=== PATIENT | female | born 1970 | race Caucasian/White ===

== ENCOUNTER → 2017-06-15 | Outpatient (CLI) | payer BC, OTHER ==
--- NOTE | 2017-06-15 08:48 | Diagnostic Imaging Report ---
EXAMINATION: Bilateral diagnostic mammogram with tomosynthesis and a Computer Aided Detection (CAD) system. INDICATION: Pain and swelling in the left axillary region. COMPARISON: 07/15/2016. FINDINGS: The breasts are composed of heterogeneously dense parenchyma which may decrease mammographic sensitivity. There is no definite underlying mass seen and areas of asymmetry in the left breast appear stable from the prior mammograms including a focal asymmetry in the upper outer aspect along the far posterior aspect of the left breast. With tomosynthesis evaluation, this region appears nonspecific and could represent focal parenchyma. The area of pain in the axillary tail region is marked with no underlying abnormality seen. The right breast demonstrates no definite change. IMPRESSION: 1. The area of pain demonstrates no mammographic abnormality. 2. There is a focal asymmetry in the upper outer aspect of the left breast in the far posterior aspect which appears to be unchanged from multiple prior exams favoring a benign etiology. The tomographic appearance is indeterminate. An ultrasound evaluation is pending. ACR BI-RADS Category 0: Incomplete. (Needs additional imaging evaluation). Result letter will be mailed to the patient. Note: At least 10% of breast cancer is not imaged by mammography. Dictated by: Dictated on workstation # [id number]
--- NOTE | 2017-06-15 09:55 | Diagnostic Imaging Report ---
EXAMINATION: Left breast ultrasound. INDICATION: Pain in the left axillary region. Also the breast parenchyma is dense and there is a focus within the upper outer aspect, far posterior depth seen on mammography. FINDINGS: The four-quadrant internal mammary region appear unremarkable with no focal lesion. IMPRESSION: Negative study. The focal asymmetry along the far posterior aspect in the upper outer left breast based on mammography remains indeterminate. Similar focal asymmetry is seen on prior mammograms which would favor benign etiology. MRI of the breast for further evaluation however is recommended. BI-RADS 0. ACR BI-RADS Category 0: Incomplete. (Needs additional imaging evaluation). Dictated by: Dictated on workstation # [id number]
== END ==
LOC: RAD 07:57
PROVIDERS: ATTEND Family Medicine
DX: N64.89 Other specified disorders of breast (principal)
CPT/HCPCS: 76641; 77066

== ENCOUNTER → 2017-07-03 | Outpatient (CLI) | payer BC ==
[~2017-07-03] MED LIST: GADOBUTROL 7.5 MMOL/7.5 ML (GADAVIST) VIAL IV ONE
== END ==
LOC: RAD 11:03
PROVIDERS: ATTEND Family Medicine
DX: N64.4 Mastodynia (principal); R59.0 Localized enlarged lymph nodes
CPT/HCPCS: 77059

== ENCOUNTER → 2018-02-12 | Outpatient (CLI) | payer BC ==
--- NOTE | 2018-02-12 13:05 | Diagnostic Imaging Report ---
INDICATION: Chronic left hip pain. TIME OF EXAM: 12:51 PM FINDINGS: Two views of the left hip demonstrate normal femoral acetabular alignment. The joint space is well maintained. The femoral head and neck are intact. No fractures are seen. IMPRESSION: No acute bony abnormality is detected. Dictated by: Dictated on workstation # [id number]
== END ==
LOC: RAD 12:16
PROVIDERS: ATTEND Family Medicine
DX: M25.552 Pain in left hip (principal); G89.29 Other chronic pain
CPT/HCPCS: 73502

== ENCOUNTER → 2018-06-25 | Outpatient (CLI) | payer BC ==
--- NOTE | 2018-06-25 15:38 | Diagnostic Imaging Report ---
INDICATION: Routine screening. COMPARISON: Comparison is made with prior exam from 06/15/2017 and 06/10/2016. TECHNIQUE: 2D and 3D bilateral screening mammography was performed with computer-aided detection (CAD) system. FINDINGS: Both breasts again demonstrate marked parenchymal heterogeneity and increased density, limiting the sensitivity of mammography. The parenchymal pattern appears stable. Circumscribed densities far posterior left breast appear stable and most consistent with intraparenchymal lymph nodes. No spiculated mass or malignant appearing microcalcifications are seen. The axillae are unremarkable. IMPRESSION: No mammographic features suspicious for malignancy are identified. ACR BI-RADS Category 2: Benign findings. Result letter will be mailed to the patient. Note: At least 10% of breast cancer is not imaged by mammography. Dictated by: Dictated on workstation # [id number]
== END ==
LOC: RAD 13:23
PROVIDERS: ATTEND Family Medicine
DX: Z12.31 Encounter for screening mammogram for malignant neoplasm of breast (principal)
CPT/HCPCS: 77067

== ENCOUNTER → 2019-06-01 | Outpatient (CLI) | payer BC ==
[~2019-06-01] MED LIST changes: +CATHETER FLUSH 10 ML SYR IV PRN; -GADOBUTROL 7.5 MMOL/7.5 ML (GADAVIST) VIAL IV ONE
--- NOTE | 2019-06-01 13:49 | Diagnostic Imaging Report ---
INDICATION: Right upper quadrant pain. TECHNIQUE: The patient was administered 5.5 mCi of technetium 99m Choletec intravenously and imaging over the abdomen was performed. At 60 minutes, the patient ingested one can of Ensure and a gallbladder ejection fraction was calculated. FINDINGS: There is homogeneous uptake of activity by the liver. Excretion of activity into the common duct and gallbladder is noted. There is normal passage of activity into the small bowel. The gallbladder ejection fraction is at the lower limits of normal at 34%. Normal values are 33% or greater. IMPRESSION: 1. Patent cystic duct and common bile duct. 2. Lower limits of normal gallbladder ejection fraction of 34%. Dictated by: Dictated on workstation # [id number]
== END ==
LOC: CARD 09:32
PROVIDERS: ATTEND Nurse Practitioner Family
DX: R10.11 Right upper quadrant pain (principal)
CPT/HCPCS: 78227

== ENCOUNTER 2019-06-23 08:37 | Day surgery (SDC) | payer BC ==
[2019-06-23] VITALS (13 sets, daily range): BP systolic 95–138; BP diastolic 66–89
[~2019-06-23] VITALS: Ht 157.5 cm; Wt 69.9 kg
[~2019-06-23 08:37] MED LIST changes: -CATHETER FLUSH 10 ML SYR IV PRN; +PANT40TA2 PO
--- NOTE | 2019-06-23 09:01 | Progress Note-Pre Operative ---
Pre-Operative Progress Note H&P Reviewed The H&P was reviewed, patient examined and no changes noted. Date Seen by Provider: Jun 23, 2019 Time Seen by Provider: 08:55 Date H&P Reviewed: Jun 23, 2019 Time H&P Reviewed: 08:50 Pre-Operative Diagnosis: Biliary Dyskinesia, Reflux, PUD, lower abdominal pain LASHANDA OCASIO APRN Jun 23, 2019 09:01
[2019-06-23] MEDS ORDERED: HYDR-3816 PO (09:03)
--- NOTE | 2019-06-23 09:05 | Discharge Inst-Surgical ---
D/C Lap Instructions-KIDO Reconcile Patient Problems Problems Reviewed?: Yes New, Converted, or Re-Newed RX: RX on Chart Follow Up Appt in 2 weeks Activity as tolerated No driving for 24 hours No driving while on pain medications Incentive Spirometry use every 2 hours while awake Regular Diet High Fiber Diet 25g or more per day Avoid Alcohol, Caffeine, Spicy Horatio and Acid foods. Drink 64 fluid oz or more of fluids per day. Symptoms to Report: Fever over 101 degree F, Nausea/Vomiting Infection Signs and Symptoms to report: Increased redness, Foul odor of wound, Increased drainage Bathing instructions: May shower Operative Area Clean/Dry; Keep incision clean/dry If any problems/questions: Contact your physician or go to Emergency Room LASHANDA OCASIO APRN Jun 23, 2019 09:05
[2019-06-23] MEDS ORDERED: FAMOTIDINE 20MG/2ML IV (PEPCID) ONE (09:07)
[2019-06-23 09:13] LABS: BASOPHILS % (AUTO) 0 % (0-10); EOSINOPHILS # (AUTO) 0.1 10^3/uL (0.0-0.3); EOSINOPHILS % (AUTO) 2 % (0-10); HEMATOCRIT 45 % (35-52); HEMOGLOBIN 15.3 G/DL (11.5-16.0); LYMPHOCYTES # (AUTO) 2.4 X 10^3 (1.0-4.0); LYMPHOCYTES % (AUTO) 31 % (12-44); MEAN CORPUSCULAR HEMOGLOBIN 30 PG (25-34); MEAN CORPUSCULAR HGB CONC 34 G/DL (32-36); MEAN CORPUSCULAR VOLUME 87 FL (80-99); MEAN PLATELET VOLUME 9.7 FL (7.4-10.4); MONOCYTES # (AUTO) 0.7 X 10^3 (0.0-1.0); MONOCYTES % (AUTO) 9 % (0-12); NEUTROPHILS # (AUTO) 4.4 X 10^3 (1.8-7.8); NEUTROPHILS % (AUTO) 58 % (42-75); PLATELET COUNT 262 10^3/uL (130-400); RED CELL DISTRIBUTION WIDTH 13.1 % (10.0-14.5); WHITE BLOOD COUNT 7.6 10^3/uL (4.3-11.0)
[2019-06-23] MEDS ORDERED: ONDANSETRON 4 MG/2 ML (SDV) Z0FRAN IVP PRN ×2 (09:15→12:00)
[2019-06-23] MEDS ORDERED: HYDROcodone/APAP 5 MG/325 MG (LORTAB) TAB PO ONE (09:15)
[2019-06-23] MEDS ORDERED: ACETAMINOPHEN 325 MG TABLET PO PRN (09:15)
[2019-06-23] MEDS ORDERED: morphine INJ 10 MG/ML 1ML (SYR OR VIAL) IVP PRN (09:15)
[2019-06-23] MEDS ORDERED: TRAM50TA2 PO (09:19)
[2019-06-23] MEDS ORDERED: ceFAZolin 2 GM/50 ML NS 50 ML ONE (09:20)
[2019-06-23] MEDS ORDERED: LACTATED RINGERS 1,000 ML IV PRN (09:33)
[2019-06-23] MEDS ORDERED: FAMOTIDINE 20MG/2ML IV (PEPCID) IVP ONE (09:45)
[2019-06-23] MEDS ORDERED: ONDANSETRON 4 MG/2 ML (SDV) Z0FRAN IVP ONE (09:45)
[2019-06-23] MEDS ORDERED: ceFAZolin 2 GM/50 ML NS 50 ML IV ONE (09:45)
[2019-06-23] MEDS ORDERED: proPOfol 200 MG/20 ML (DIPRIVAN) VIAL IV ONE (09:50)
[2019-06-23] MEDS ORDERED: DEXAMETHASONE 10 MG/ML (DECADRON) 1 ML VIAL ONE (09:50)
[2019-06-23] MEDS ORDERED: ONDANSETRON 4 MG/2 ML (SDV) Z0FRAN ONE (09:50)
[2019-06-23] MEDS ORDERED: LIDOCAINE PF 2% 5 ML (XYLOCAINE) VIAL ONE (09:50)
[2019-06-23] MEDS ORDERED: fentaNYL INJECTION 100 MCG/2 ML AMP ONE (09:51)
[2019-06-23] MEDS ORDERED: MIDAZOLAM 2 MG/2 ML (VERSED) VIAL ONE (09:51)
[2019-06-23] MEDS ORDERED: BUP/EPI 0.5% 1:200,000 (MARCAINE) 10ML VIAL IJ ONE (09:55)
[2019-06-23] MEDS ORDERED: ROCURONIUM 10 MG/ML 5 ML SYRINGE IV ONE (10:00)
[2019-06-23] MEDS ORDERED: SEVOFLURANE (ULTANE) 15 ML INHAL SOLN ONE ×2 (10:00→11:28)
[2019-06-23] MEDS ORDERED: GLYCOPYRROLATE 0.2 MG/ML (ROBINUL) 2 ML VIAL ONE (11:22)
[2019-06-23] MEDS ORDERED: KETOROLAC 30 MG/ML VIAL ONE (11:22)
[2019-06-23] MEDS ORDERED: NEOSTIGMINE 3 MG/3 ML VIAL ONE (11:22)
--- NOTE | 2019-06-23 11:33 | Progress Note-Post Operative ---
Post-Operative Progess Note Surgeon (s)/Head Of Science (s) Surgeon Dr. Dakota Chan M.D. Head Of Science: Javi Ocasio APRN Pre-Operative Diagnosis Biliary Dyskinesia, Reflux, PUD, lower abdominal pain Post-Operative Diagnosis Biliary Dyskinesia, reflux esophagitis stage II, small hiatal hernia (1.5 cm), mild gastritis, normal colon and rectum. Procedure & Operative Findings Date of Procedure 06/23/19 Procedure Performed/Findings Laparoscopic Cholecystectomy, EGD with biopsy, colonoscopy Anesthesia Type GET Estimated Blood Loss Estimated blood loss (mL): Minimal Specimens/Packing Specimens Removed 1) Gallbladder 2) Antrum 3) GE junction JAVI OCASIO APRN Jun 23, 2019 11:33
[2019-06-23] MEDS ORDERED: morphine INJ 10 MG/ML 1ML (SYR OR VIAL) IVP ONE (12:00)
[2019-06-23] MEDS ORDERED: PROMETHAZINE INJ 25 MG/ML (PHENERGAN) AMP IVP ONE (12:00)
[2019-06-23] MEDS ORDERED: MEPERIDINE (DEMEROL) INJ 50 MG/ML IVP ONE (12:00)
--- NOTE | 2019-06-23 12:54 | Anesthesia-General Post-Op ---
General Patient Condition Mental Status/LOC: Same as Preop Cardiovascular: Satisfactory Nausea/Vomiting: Absent Respiratory: Satisfactory Pain: Controlled Complications: Absent Post Op Complications Complications None Follow Up Care/Instructions Patient Instructions None needed. Anesthesia/Patient Condition Patient Condition Patient is doing well, no complaints, stable vital signs, no apparent adverse anesthesia problems. No complications reported per nursing. MUSHTAQ STANTON CRNA Jun 23, 2019 12:54
--- NOTE | 2019-06-23 17:10 | OPERATIVE REPORT ---
DATE OF SERVICE: 06/23/2019 ATTENDING PRIMARY CARE PHYSICIAN: Dr. Quintanilla. PREOPERATIVE DIAGNOSES: Symptomatic biliary dyskinesia, gastroesophageal reflux disease, history of colon polyps. POSTOPERATIVE DIAGNOSES: Biliary dyskinesia, reflux esophagitis stage II, small hiatal hernia 1.5 to 2 cm in size, mild gastritis. Normal colon and rectum. PROCEDURE: Laparoscopic cholecystectomy, EGD with biopsy, colonoscopy. SURGEON: Kiran Chan MD WASTEWATER PROCESS ENGINEER: Javi Isidro APRN ANESTHESIA: General endotracheal. ESTIMATED BLOOD LOSS: Minimal. FINDINGS: Biliary dyskinesia, reflux esophagitis stage II, small hiatal hernia 1.5 to 2 cm in size, mild gastritis. Normal colon and rectum. DISPOSITION: The patient tolerated the procedure well. INDICATION: The patient is a 48-year-old female, who has had pain in the right upper abdominal quadrant on an intermittent basis for years; however, this has become much more significant more recently. She states that she has a severe bloating sensation of the upper abdomen and then also pain in the right upper abdominal quadrant with radiation towards the back. She feels nausea; however, no vomiting. She has had a history of gastroesophageal reflux disease with epigastric burning sensation; however, states that other issue is different from her reflux. She reports that the abdominal pain and distention cause worsening reflux. She also has had a history of colon polyps and is in need of a screening colonoscopy. DESCRIPTION OF PROCEDURE: The patient was brought to the operating room, laid supine on the table. After adequate IV pain and sedative medications and general endotracheal intubation, the abdomen was prepped and draped in standard surgical fashion. A 0.5% Marcaine with epinephrine was used to anesthetize the overlying skin in the left upper abdominal quadrant and a transverse skin incision was made using 15 blade. An 0 silk suture was applied to the medial aspect of the incision for retraction and a Veress needle was inserted with a low opening pressure of 0 mmHg and the abdomen was insufflated to 15 mmHg pressure. The Veress needle was removed and a 5 mm XL trocar was placed followed by a 5 mm 45-degree angle laparoscope visualizing the peritoneal cavity. A 4-quadrant abdominal exploration was performed. There were omental adhesions along the hepatic flexure. There was a slightly distended gallbladder. There was no gallbladder wall thickening. The omental adhesions were then taken down using cautery and EndoShear. The gallbladder was then retracted anteriorly and superiorly and the patient was then placed in reverse Trendelenburg position. The hepatoduodenal ligament was then opened using blunt dissection as well as electrocautery using the hook instrument. The entire critical view of safety was identified including the cystic duct and artery as the only two structures going into the gallbladder as well as the triangle of Calot as well as the cystic plate behind the proximal gallbladder. A timeout was then taken and the cystic duct and artery were then clipped proximally and distally and cut with EndoShears. The gallbladder was then dissected off the liver bed using cautery on hook instrument with visualization of good hemostasis as well as no leaking ducts of Luschka. The gallbladder was removed through the 10 mm port site using an EndoCatch bag. The 10 mm port site fascia and peritoneum were then closed under direct visualization using a Norman-Sánchez device and 0 Vicryl suture. The abdomen was desufflated and the remaining ports were removed. All skin incisions were closed using 4-0 Monocryl running subcuticular sutures. Wounds were then cleaned and covered with Dermabond. Under the same anesthesia, we then proceeded with the EGD portion of the procedure and the mouthpiece was applied. The endoscope was then placed in the mouth, visualizing the pharynx and hypopharyngeal region. Vocal cords, epiglottis and vallecula were identified and appeared to be normal. The endoscope was then gently intubated into the esophageal opening and esophagus was insufflated. The endoscope was then advanced through the first, second and third portions of the esophagus at the level of the GE junction, reflux esophagitis stage II was identified. There were no ulcers or strictures identified in this region. A biopsy was taken with forceps and electrocautery with visualization of good hemostasis. The endoscope was then advanced into the stomach and endoscope retroflexed, visualizing a small hiatal hernia, approximately 1.5 to 2 cm in size. There was a mild gastritis. No formal ulcerations, polyps or any neoplasms. A biopsy was taken of the stomach antrum to rule out H. pylori with visualization of good hemostasis. The endoscope was then advanced to the pylorus and the first and second portion of the duodenum, which appeared normal with no distal obstructions. The endoscope was then slowly withdrawn while taking a second look and suctioning of residual air with no additional findings. Under the same anesthesia, we then proceeded with colonoscopy portion of the procedure and the patient was placed in the frog leg position and a digital rectal examination was performed, which did not reveal any significant hemorrhoids. Normal sphincter tone was felt and there were no palpable masses. The endoscope was then intubated into the anus and the rectum was gently insufflated. The endoscope was then advanced to the valves of [place] of the rectum with no polyps or any neoplasms identified. We then proceeded through the sigmoid colon where no diverticulosis was identified. The endoscope was then advanced to the remainder of the descending, transverse and ascending colon to the cecum. These segments were normal. There were no polyps or any neoplasms identified throughout the colon or rectum. The endoscope was then slowly withdrawn while taking a second look and suctioning of residual air with no additional findings. The patient tolerated the procedure well. We will start IV and oral pain medication as well as a clear liquid diet. Once she is tolerating clears, has good pain control with oral pain medication and is ambulating well, we will discharge her home. She will be instructed to do no heavy lifting or exertion for the next two weeks. She may proceed with a regular diet; however, avoid caffeinated beverages, spicy, greasy and acidic foods. We also recommend continuation of Protonix for at least another four to six weeks. However, if she feels better, she may discontinue the medication. We also recommend a high fiber diet with at least 25 grams of fiber to promote soft stools on a daily basis. Job ID: [id number] DocumentID: [id number] Dictated Date: 06/23/2019 11:55:25 Tile Mechanic Date: 06/23/2019 17:09:49 Dictated By: KIRAN CHAN MD
== END 2019-06-23 15:40 | disposition home or self-care (01) ==
LOC: SDC 08:37
PROVIDERS: ATTEND Surgery
DX: Z12.11 Encounter for screening for malignant neoplasm of colon (principal); K81.1 Chronic cholecystitis; K82.8 Other specified diseases of gallbladder; K21.0 Gastro-esophageal reflux disease with esophagitis; K44.9 Diaphragmatic hernia without obstruction or gangrene; J30.1 Allergic rhinitis due to pollen; F32.9 Major depressive disorder, single episode, unspecified; F41.9 Anxiety disorder, unspecified; G89.29 Other chronic pain; M54.9 Dorsalgia, unspecified; I34.1 Nonrheumatic mitral (valve) prolapse; Z86.010 Personal history of colon polyps; Z83.71 Family history of colonic polyps; Z83.79 Family history of other diseases of the digestive system; Z88.1 Allergy status to other antibiotic agents; Z91.018 Allergy to other foods; Z88.5 Allergy status to narcotic agent; Z79.899 Other long term (current) drug therapy; Z83.3 Family history of diabetes mellitus; Z82.49 Family history of ischemic heart disease and other diseases of the circulatory system; Z82.3 Family history of stroke; Z87.11 Personal history of peptic ulcer disease
CPT/HCPCS: 36415; 84703; 85025; 87081; 88304; 88305

== ENCOUNTER → 2019-08-10 | Outpatient (CLI) | payer BC ==
[~2019-08-10] MED LIST changes: +HYDR-3816 PO; +TRAM50TA2 PO
--- NOTE | 2019-08-10 10:29 | Diagnostic Imaging Report ---
Indication: Routine screening. Comparison is made with prior mammogram from 06/25/2018 and 06/15/2017. 2-D and 3-D bilateral screening mammography was performed with CAD. Both breasts are heterogeneously dense, limiting the sensitivity of mammography. The overall parenchymal pattern appears stable. Circumscribed densities in the left breast previously described appear stable. No spiculated mass or malignant-appearing microcalcifications are seen. The axillae are unremarkable. Impression: BI-RADS category 2 No mammographic features suspicious for malignancy are identified. Dictated by: Dictated on workstation # [id number]
== END ==
LOC: RAD 07:33
PROVIDERS: ATTEND Family Medicine
DX: Z12.31 Encounter for screening mammogram for malignant neoplasm of breast (principal)
CPT/HCPCS: 77067

== ENCOUNTER → 2020-08-14 | Outpatient (CLI) | payer BC ==
[~2020-08-14] MED LIST changes: +HYDR-34 PO; -HYDR-3816 PO; -TRAM50TA2 PO; +TRM50T PO
--- NOTE | 2020-08-14 12:43 | Diagnostic Imaging Report ---
INDICATION: Routine screening. Comparison is made with prior mammogram 08/10/2019 and 06/25/2018. 2-D and 3-D bilateral screening mammography was performed with CAD. Both breasts remain heterogeneously dense, limiting the sensitivity of mammography. Circumscribed densities left breast are again noted appear benign. No spiculated mass or malignant appearing microcalcifications are seen. Axillae are unremarkable. IMPRESSION: BI-RADS Category 2 No mammographic features suspicious for malignancy are identified. ACR BI-RADS Category 2: Benign findings. Result letter will be mailed to the patient. Note: At least 10% of breast cancer is not imaged by mammography. Dictated by: Dictated on workstation # [id number]
== END ==
LOC: RAD 08:15
PROVIDERS: ATTEND Family Medicine
DX: Z12.31 Encounter for screening mammogram for malignant neoplasm of breast (principal)
CPT/HCPCS: 77063; 77067

== ENCOUNTER → 2021-08-15 | Outpatient (CLI) | payer BC ==
--- NOTE | 2021-08-16 09:47 | Diagnostic Imaging Report ---
Digital mammogram bilateral screening This study was compared to the prior exam of 08/14/2020, 08/10/2019 and 06/25/2018. At this time, there are no current complaints. The current study was also evaluated with a Computer Aided Detection (CAD) system. FINDINGS: The fibroglandular tissue in both breasts is heterogeneously dense. This does limit the sensitivity of this exam. Overall, there does not appear to have been any significant change when compared to the prior study. No primary or secondary sign of malignancy is noted. IMPRESSION: There is no radiographic evidence for malignancy. ACR BI-RADS Category 1: Negative. Result letter will be mailed to the patient. Note: At least 10% of breast cancer is not imaged by mammography. Dictated by: Dictated on workstation # [id number]
== END ==
LOC: RAD 07:30
PROVIDERS: ATTEND Family Medicine
DX: Z12.31 Encounter for screening mammogram for malignant neoplasm of breast (principal)
CPT/HCPCS: 77063; 77067

== ENCOUNTER → 2022-08-18 | Outpatient (CLI) | payer BC ==
--- NOTE | 2022-08-18 10:13 | Diagnostic Imaging Report ---
INDICATION: Routine screening. COMPARISON: 08/15/2021 and 08/14/2020. TECHNIQUE: 2D and 3D bilateral screening mammography was performed with CAD. FINDINGS: Both breasts are heterogeneously dense, limiting the sensitivity of mammography. The overall parenchymal pattern appears to be stable. No dominant mass or malignant-appearing microcalcifications are seen. The axillae are unremarkable. IMPRESSION: No mammographic features suspicious for malignancy are identified. ACR BI-RADS Category 1: Negative. Result letter will be mailed to the patient. Note: At least 10% of breast cancer is not imaged by mammography. Dictated by: Dictated on workstation # [id number]
== END ==
LOC: RAD 07:49
PROVIDERS: ATTEND Family Medicine
DX: Z12.31 Encounter for screening mammogram for malignant neoplasm of breast (principal)
CPT/HCPCS: 77063; 77067

== ENCOUNTER → 2022-08-22 | Outpatient (RCR) | payer BC | END | disposition home or self-care (01) | PROVIDERS: ATTEND Family Medicine | DX: M54.2 Cervicalgia (principal); R25.2 Cramp and spasm ==

== ENCOUNTER 2022-09-05 12:59 | Outpatient (RCR) | payer BC | END 2022-09-22 | disposition home or self-care (01) | PROVIDERS: ATTEND Family Medicine | DX: M54.2 Cervicalgia (principal); R25.2 Cramp and spasm ==

== ENCOUNTER → 2023-10-26 | Outpatient (CLI) | payer BC | LOC: CARD 13:19 | PROVIDERS: ATTEND Family Medicine | DX: R06.02 Shortness of breath (principal) | CPT/HCPCS: 93005 ==